=== PATIENT | male | born 1955 | race Caucasian/White ===

== ENCOUNTER 2016-09-18 17:57 | Emergency (ER) | payer MEDICAID, OTHER ==
[~2016-09-18] VITALS: Ht 160 cm; Wt 57.7 kg
[2016-09-18 18:07] VITALS: BP 146/97; PULSE 101; RESP 16; O2SAT 96
--- NOTE | 2016-09-18 19:40 | ED.REPORT ---
HPI-General Illness Date of Service Sep 18, 2016 ED Provider: Martell Ruiz PA-C Johnathan a 61-year-old male with a history of anxiety disorder who presents with a chief complaint of rib pain. Patient states that he is staying [facility] attempting to deal with suicidal ideation, anxiety and panic disorder. He reports fracturing ribs 2 months ago from extended bouts of coughing. He was seen at [facility] last night where x-rays revealed no new fractures or pneumonia per the patient. He wishes to be prescribed hydrocodone for his rib pain and a benzodiazepine to assist with sleep. Physician at crisis center and did not feel comfortable prescribing narcotics or benzodiazepines this patient so he was advised to present to the emergency department. Nursing Notes Stated Complaint: RIB PAIN,PANIC,ANXIETY DISORDER Chief Complaint: General Complaint Nursing Notes Reviewed: Yes Allergies: Coded Allergies: erythromycin base (Verified Allergy, Severe, Anaphylaxis, 09/18/16) Scheduled PRN Hydroxyzine Pamoate (HydrOXYzine Pamoate) 25 Mg Capsule 25-50 MG PO HS PRN PRN For Insomnia General Time Seen by MD: 19:01 Chief Complaint Other (anxiety) Past Medical History Past Medical History COPD Review of Systems Negative unless stated otherwise in history of present illness Physical Exam General: Well appearing, well developed, well nourished, no acute distress. Head: Atraumatic, normocephalic. Eyes: No scleral icterus or injection. No discharge. Vision grossly intact. ENT: Voice clear, hearing grossly intact. Respiratory: Regular rate and rhythm. Mild wheezes in all sandy. No respiratory distress. No increased work of breathing, speaks in complete sentences. Cardiovascular: Regular rate and rhythm, without murmur, gallop or rub. No pedal edema. Gastrointestinal: Abdomen flat and non-tender without guarding or rebound. Bowel sounds normoactive. Skin: Warm and dry. Neurological: Grossly nonfocal. Psychological: Alert and oriented. Speech appropriate, linear and logical. Behavior appropriate. Vital Signs Vital Signs Date Time Temp Pulse Resp B/P Pulse Ox O2 Delivery O2 Flow Rate FiO2 09/18/16 18:07 36.9 101 16 146/97 96 Room Air Initial VS: Vital signs abnormal (mild tachycardia, although blood pressure) Re-Eval/Medical Decision Med Decision/Clinical Course 61-year-old male presents overtly seeking narcotic pain medication for rib pain and benzodiazepine to assist with sleep. He is currently staying at the crisis [facility]. He was seen at [facility] last night and retained overnight at the crisis center. X-rays there revealed no pneumonia or rib fractures per patient. Patient reports he was treated with hydrocodone and Ativan successfully. Physical examination reveals wheezes in all sandy. No indication of respiratory distress. This patient is followed by his primary care provider for COPD. I discussed the case with our social work therapist, who tells me he has many emergency department visits between [facility] in the last year. History of alcohol abuse and homelessness. I discussed the case with the nurse at the crisis [facility] who tells me that there resident physician did not feel comfortable prescribing these medications to this patient. He was referred to the emergency department. I do not feel it would be appropriate for me to prescribe these medications this patient at this time, and discussed this with the patient. Advised 1000 mg Tylenol every 6 hours for rib pain and offered hydroxyzine to assist with sleep. Patient agrees to this. Provided primary care follow-up instructions, emergency return precautions. Discharge & Departure Primary Impression: Rib pain Disposition: Home Discharge Condition All VS Reviewed: Yes Condition: Stable Additional Instructions: Evaluation for anxiety and rib pain emergency Department. History and physical examination reveal reveal pain in your ribs, but based on the results of the examination last night at [facility], I am assured that you do not have rib fractures or pneumonia. Fortunately I cannot prescribe controlled substances for you tonight. I recommend 1000 mg of Tylenol taken every 6 hours for the pain. I will provide you a prescription for hydroxyzine pamoate to be taken before bed to help with sleep. Follow-up with your primary care provider if you have any further concerns. Return to emergency department for any new or worsening symptoms including new pain in your chest, difficulty breathing, shortness of breath. Referrals: Bhavin Vargas MD EDSupervising Provider for APC: Freddie Arzate MD copies to: Bhavin Vargas MD, Seth PA-C Sep 18, 2016 19:40
[2016-09-18] MEDS ORDERED: HYDR-3797 PO (20:01)
== END 2016-09-18 20:06 | disposition home or self-care (01) ==
LOC: SED 17:57
DX: R07.9 Chest pain, unspecified (principal); J44.9 Chronic obstructive pulmonary disease, unspecified; Z88.1 Allergy status to other antibiotic agents
CPT/HCPCS: 99283; Q0177